=== PATIENT | female | born 1980 | race African-American/Black ===

== ENCOUNTER 2021-01-18 20:37 | Inpatient (IN) | payer OTHER ==
[2021-01-18 20:43] VITALS: BMI 25.7
[2021-01-18] MEDS ORDERED: LACTATED RINGERS SOLUTION 1000 ML INFUS.BAG IV ONE (21:13)
[2021-01-18] MEDS ORDERED: ONDANSETRON 4 MG/2 ML VIAL IVPUSH ONE (21:13)
[2021-01-18] MEDS ORDERED: ONDANSETRON 4 MG/2 ML VIAL ONE (21:30)
[2021-01-18 22:15] LABS: CHLORIDE 107 mmol/L (98-107); SODIUM 140 mmol/L (136-145)
[2021-01-18 22:17] LABS: BASO % 1.8 % (0-2.0); EOS % 1.5 % (0-4.5); HEMATOCRIT 33.9 % (32.4-45.2); HEMOGLOBIN 10.9 GM/dL (10.7-15.3); LYMPH % 45.9 % (8-40); MCH 25.2 pg (25.7-33.7); MCHC 32.2 g/dl (32.0-36.0); MEAN CELL VOLUME 78.3 fl (80-96); MEAN PLT VOLUME 7.8 fl (7.5-11.1); MONO % 10.8 % (3.8-10.2); PLATELET COUNT 297 K/MM3 (134-434); RBC 4.32 M/mm3 (3.60-5.2); RDW 19.2 % (11.6-15.6); WHITE BLOOD COUNT 5.7 K/mm3 (4.0-10.0)
[2021-01-18 22:18] LABS: ALBUMIN 3.6 g/dl (3.4-5.0); ANION GAP 5 MMOL/L (8-16); BLOOD UREA NITROGEN 7.5 mg/dL (7-18); CALCIUM 8.4 mg/dL (8.5-10.1); CO2 28 mmol/L (21-32); GLUCOSE,RANDOM 77 mg/dL (74-106)
[2021-01-18 22:21] LABS: SGOT/AST 11 U/L (15-37); SGPT/ALT 9 U/L (13-61)
[2021-01-18 22:22] LABS: BILIRUBIN,TOTAL 0.5 mg/dL (0.2-1); CREATININE 0.9 mg/dL (0.55-1.3); TOT PROT 6.5 g/dl (6.4-8.2)
[2021-01-18 22:24] LABS: ALK PHOS 54 U/L (45-117)
[2021-01-18] MEDS ORDERED: ACETAMINOPHEN 1000 MG/100 ML VIAL (NON FORMULARY) IVPB ONE (23:10)
[2021-01-18] MEDS ORDERED: ACETAMINOPHEN INJECTION 100 ML IVPB ONE (23:22)
[2021-01-18 23:29] LABS: PH,URINE 7.5 (5.0-8.0); URINE APPEARANCE CLOUDY; URINE BILIRUBIN NEGATIVE (NEGATIVE); URINE COLOR YELLOW; URINE GLUCOSE (UA) NEGATIVE (NEGATIVE); URINE KETONE NEGATIVE (NEGATIVE); URINE LEUK ESTERASE NEGATIVE (NEGATIVE); URINE NITRITE NEGATIVE (NEGATIVE); URINE PROTEIN NEGATIVE (NEGATIVE); URINE UROBILINOGEN 0.2 mg/dL (0.2-1.0)
[2021-01-18 23:32] LABS: HCG,QUALITATIVE URINE Negative
[2021-01-19 01:03] VITALS: BP 107/77; PULSE 82; TEMP 98.4
== END 2021-01-19 06:12 | disposition home or self-care (01) | DRG 532 ==
LOC: JER 20:37 → JERBED 01-19 02:36
PROVIDERS: ADMIT Hospitalist; ATTEND Hospitalist
DX: D25.9 Leiomyoma of uterus, unspecified (principal); F60.3 Borderline personality disorder; F41.9 Anxiety disorder, unspecified; N83.202 Unspecified ovarian cyst, left side; R19.00 Intra-abdominal and pelvic swelling, mass and lump, unspecified site; N83.201 Unspecified ovarian cyst, right side
CPT/HCPCS: 36415; 74177-TC; 76830-TC; 76856-TC; 80053; 81003; 84484; 84702; 84703; 85025; 85379; 87086; 87186; 93005; 93010; 99285-25; J0131

== ENCOUNTER 2021-01-27 02:59 | Inpatient (IN) | payer OTHER ==
[2021-01-27 03:05] VITALS: BMI 26.6
[2021-01-27 04:02] LABS: PH,URINE 5.5 (5.0-8.0); URINE APPEARANCE CLEAR; URINE BILIRUBIN NEGATIVE (NEGATIVE); URINE COLOR YELLOW; URINE GLUCOSE (UA) NEGATIVE (NEGATIVE); URINE KETONE NEGATIVE (NEGATIVE); URINE LEUK ESTERASE NEGATIVE (NEGATIVE); URINE NITRITE NEGATIVE (NEGATIVE); URINE PROTEIN NEGATIVE (NEGATIVE); URINE UROBILINOGEN 0.2 mg/dL (0.2-1.0)
[2021-01-27 04:03] LABS: BASO % 1.4 % (0-2.0); EOS % 1.2 % (0-4.5); HEMATOCRIT 37.5 % (32.4-45.2); LYMPH % 44.1 % (8-40); MCH 24.9 pg (25.7-33.7); MCHC 31.9 g/dl (32.0-36.0); MEAN CELL VOLUME 77.9 fl (80-96); MEAN PLT VOLUME 8.1 fl (7.5-11.1); MONO % 10.9 % (3.8-10.2); NEUT % 42.4 % (42.8-82.8); PLATELET COUNT 361 K/MM3 (134-434); RBC 4.81 M/mm3 (3.60-5.2); RDW 18.9 % (11.6-15.6); WHITE BLOOD COUNT 7.7 K/mm3 (4.0-10.0)
[2021-01-27 04:09] LABS: INR 1.05 (0.83-1.09); PROTHROMBIN TIME (PATIENT) 12.7 SEC (9.7-13.0)
[2021-01-27 04:12] LABS: ACTIVATED PTT 35.3 SECONDS (25.2-36.5)
[2021-01-27 04:24] LABS: BLOOD UREA NITROGEN 7.8 mg/dL (7-18); CALCIUM 9.1 mg/dL (8.5-10.1)
[2021-01-27 04:27] LABS: CREATININE 0.9 mg/dL (0.55-1.3)
[2021-01-27 04:29] LABS: BILIRUBIN,TOTAL 0.4 mg/dL (0.2-1); TOT PROT 7.8 g/dl (6.4-8.2)
[2021-01-27 06:34] VITALS: TEMP 98
[2021-01-27] MEDS ORDERED: NICOTINE 14 MG/24 HOURS TOPICAL PATCH TD SCH (10:00)
[2021-01-27] MEDS ORDERED: ENOXAPARIN NA (PORCINE) 40 MG/0.4 ML DISP.SYRIN SQ SCH (10:00)
[2021-01-27] MEDS ORDERED: ENOXAPARIN NA (PORCINE) 40 MG/0.4 ML DISP.SYRIN SQ ONE (10:10)
[2021-01-27 15:35] VITALS: BP 110/72; PULSE 80
== END 2021-01-27 16:30 | disposition home or self-care (01) | DRG 532 ==
LOC: JER 02:59 → JERBED 06:22
PROVIDERS: ADMIT Internal Medicine
DX: D25.9 Leiomyoma of uterus, unspecified (principal); F41.9 Anxiety disorder, unspecified; N83.202 Unspecified ovarian cyst, left side; R06.02 Shortness of breath; Z79.1 Long term (current) use of non-steroidal anti-inflammatories (NSAID); N94.0 Mittelschmerz
CPT/HCPCS: 36415; 71045-TC-FY; 74177-TC; 76856-TC; 80053; 81003; 83690; 84703; 85025; 85610; 85730; 87086; 87186; 93005; 93010; 99285-25; C9803; U0003; U0005

== ENCOUNTER 2021-02-10 23:23 | Emergency (ER) | payer OTHER ==
[2021-02-10 23:38] VITALS: BP 107/68; PULSE 91; TEMP 98.7; BMI 28.3
[2021-02-11 02:30] LABS: BASO % 1.1 % (0-2.0); EOS % 1.3 % (0-4.5); HEMATOCRIT 33.5 % (32.4-45.2); HEMOGLOBIN 10.7 GM/dL (10.7-15.3); LYMPH % 35.7 % (8-40); MCH 24.7 pg (25.7-33.7); MEAN CELL VOLUME 77.3 fl (80-96); MEAN PLT VOLUME 7.6 fl (7.5-11.1); MONO % 11.7 % (3.8-10.2); NEUT % 50.2 % (42.8-82.8); PLATELET COUNT 300 K/MM3 (134-434); RBC 4.34 M/mm3 (3.60-5.2); RDW 19.2 % (11.6-15.6); WHITE BLOOD COUNT 8.2 K/mm3 (4.0-10.0)
[2021-02-11 02:39] LABS: EPI CELLS >36 /uL (0-25.1); HYALINE CASTS 5 /uL (0-3.1); URINE APPEARANCE CLOUDY; URINE BACTERIA >9,000 /uL (0-1359); URINE BILIRUBIN NEGATIVE (NEGATIVE); URINE COLOR YELLOW; URINE GLUCOSE (UA) NEGATIVE (NEGATIVE); URINE KETONE TRACE (NEGATIVE); URINE LEUK ESTERASE NEGATIVE (NEGATIVE); URINE NITRITE POSITIVE (NEGATIVE); URINE PROTEIN NEGATIVE (NEGATIVE); URINE RBC 13 /uL (0-23.9); URINE UROBILINOGEN 0.2 mg/dL (0.2-1.0); URINE WBC 6 /uL (0-25.8)
[2021-02-11 02:57] LABS: ALBUMIN 3.5 g/dl (3.4-5.0); BLOOD UREA NITROGEN 9.1 mg/dL (7-18); CALCIUM 8.6 mg/dL (8.5-10.1)
[2021-02-11 03:00] LABS: CREATININE 0.9 mg/dL (0.55-1.3)
[2021-02-11 03:02] LABS: BILIRUBIN,TOTAL 0.6 mg/dL (0.2-1); TOT PROT 6.8 g/dl (6.4-8.2)
[2021-02-11] MEDS ORDERED: traMADol HCL 50 MG TABLET PO ONE (03:51)
[2021-02-11] MEDS ORDERED: traMADol HCL 50 MG TABLET ONE (03:54)
[2021-02-11] MEDS ORDERED: CEPHALEXIN MONOHYDRATE 500 MG CAPSULE (UD) PO ONE (03:54)
[2021-02-11] MEDS ORDERED: CEPHALEXIN MONOHYDRATE 500 MG CAPSULE (UD) ONE (03:55)
== END 2021-02-11 04:13 | disposition home or self-care (01) ==
LOC: JER 23:23
DX: S63.602A Unspecified sprain of left thumb, initial encounter (principal); N39.0 Urinary tract infection, site not specified; D25.9 Leiomyoma of uterus, unspecified
CPT/HCPCS: 36415; 73130-TC-LT-FY; 80053; 80307; 81003; 85025; 87086; 87186; 87880; 99284-25

== ENCOUNTER 2021-05-01 07:28 | Emergency (ER) | payer OTHER ==
[2021-05-01 07:50] VITALS: BP 100/67; PULSE 84; TEMP 98.3; BMI 24.7
[2021-05-01] MEDS ORDERED: ACETAMINOPHEN 500 MG TABLET (FP) PO ONE (09:23)
[2021-05-01] MEDS ORDERED: ACETAMINOPHEN 325 MG TABLET (FP) ONE (09:27)
[2021-05-01 10:29] LABS: BASO % 1.1 % (0-2.0); EOS % 0.8 % (0-4.5); HEMATOCRIT 37.8 % (32.4-45.2); HEMOGLOBIN 12.2 GM/dL (10.7-15.3); LYMPH % 36.1 % (8-40); MCH 26.1 pg (25.7-33.7); MCHC 32.2 g/dl (32.0-36.0); MEAN PLT VOLUME 8.2 fl (7.5-11.1); MONO % 9.8 % (3.8-10.2); NEUT % 52.2 % (42.8-82.8); PLATELET COUNT 303 10^3/uL (134-434); RBC 4.66 M/mm3 (3.60-5.2); RDW 18.7 % (11.6-15.6); WHITE BLOOD COUNT 7.2 K/mm3 (4.0-10.0)
[2021-05-01 10:38] LABS: CHLORIDE 107 mmol/L (98-107); SODIUM 140 mmol/L (136-145)
[2021-05-01 10:41] LABS: ANION GAP 9 MMOL/L (8-16); BLOOD UREA NITROGEN 9.8 mg/dL (7-18); CALCIUM 8.6 mg/dL (8.5-10.1); CO2 24 mmol/L (21-32); GLUCOSE,RANDOM 77 mg/dL (74-106)
[2021-05-01 10:43] LABS: SGPT/ALT 14 U/L (13-61)
[2021-05-01 10:45] LABS: BILIRUBIN,TOTAL 0.5 mg/dL (0.2-1); SGOT/AST 17 U/L (15-37); TOT PROT 7.4 g/dl (6.4-8.2)
[2021-05-01 10:46] LABS: ALK PHOS 63 U/L (45-117)
== END 2021-05-01 11:12 | disposition home or self-care (01) ==
LOC: JER 07:28
DX: R05 Cough (principal); Z11.52 Encounter for screening for COVID-19
CPT/HCPCS: 36415; 71046-TC-FY; 80053; 82550; 84484; 84703; 85025; 93005; 93010; 99285-25; C9803; U0003; U0005